=== PATIENT | male | born 1980 | race Caucasian/White ===

== ENCOUNTER → 2024-01-20 12:09 | Outpatient (REF) | payer BC, SELFPAY | LOC: HWRAD 12:09 | PROVIDERS: ATTENDING PHYSICIAN Family Medicine | DX: R14.0 Abdominal distension (gaseous) (principal); K21.9 Gastro-esophageal reflux disease without esophagitis; E78.2 Mixed hyperlipidemia | CPT/HCPCS: 74177; Q9967 ==